=== PATIENT | female | born 1965 | race Caucasian/White ===

== ENCOUNTER 2018-06-10 15:59 | Inpatient (IN) | payer MEDICAID ==
[~2018-06-10] VITALS: Ht 165.1 cm; Wt 57.2 kg
--- NOTE | 2018-06-10 10:25 | NUR ---
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 Addendum: 06/11/18 at 0646 by SILVA RAWLS RN CORRECT TIME IS 1453
[~2018-06-10 15:59] MED LIST: GADODIAMIDE 2.5 MMOL/5 ML VIAL IJ ONE; GADODIAMIDE 5 MMOL/10 ML VIAL IJ ONE
--- NOTE | 2018-06-10 16:30 | NUR ---
PATIENT ARRIVED VIA STRETCHER. [id number], FROM HOME, LOW BP 74/56, 500cc NS INFUSED WNT UP TO 90/54. PATIENT AAO. DENIES ANY PAIN OR DISCOMFORT. NO ACUTE DISTRESS
[2018-06-10 16:46] LABS: BASOPHILS # (AUTO) 0.1 /CMM (0.0-0.2); BASOPHILS % (AUTO) 1.4 % (0.0-2.0); EOSINOPHILS % (AUTO) 2.6 % (0.0-6.0); HEMATOCRIT 41 % (33-45); HEMOGLOBIN 14.1 g/dL (11.5-14.8); LYMPHOCYTES # (AUTO) 1.8 /CMM (0.8-4.8); LYMPHOCYTES % (AUTO) 33.6 % (20.0-44.0); MEAN CORPUSCULAR HGB CONC 34 g/dl (31.0-36.0); MEAN CORPUSCULAR VOLUME 98 fL (82-100); MONOCYTES # (AUTO) 0.4 /CMM (0.1-1.30); MONOCYTES % (AUTO) 7.4 % (2.0-12.0); NEUTROPHILS # (AUTO) 2.9 /CMM (1.8-8.9); PLATELET COUNT (AUTO) 253 /CMM (150-450); WHITE BLOOD COUNT (AUTO) 5.4 K/uL (4.3-11.0)
--- NOTE | 2018-06-10 16:50 | NUR ---
TRIAGE LICENSED PRACTICAL NURSE AT BEDSIDE
[2018-06-10 16:55] LABS: CALCIUM, SERUM 8.3 mg/dL (8.5-10.1); CARBON DIOXIDE 23 mmol/L (21-32); CHLORIDE 103 mmol/L (98-107); CREATININE 0.6 mg/dL (0.6-1.3); GLUCOSE 118 mg/dL (74-106); POTASSIUM 3.5 mmol/L (3.5-5.1); SODIUM SERUM 135 mmol/L (136-145); UREA NITROGEN, BLOOD 12 mg/dL (7-18)
[2018-06-10] MEDS ORDERED: IV NS 0.9% 1,000 ML BAG IV ONE (17:00)
--- NOTE | 2018-06-10 19:25 | NUR ---
TEXTED DR. HINSON FOR MRI APPROVAL.
--- NOTE | 2018-06-10 19:27 | NUR ---
MRI APPROVED.BARK SCALER NOTIFIED
--- NOTE | 2018-06-10 20:43 | NUR ---
PAGED [facility].
[2018-06-10 21:17] VITALS: BP 122/76
--- NOTE | 2018-06-10 21:19 | NUR ---
pt transfered to 105 via [facility].
--- NOTE | 2018-06-10 21:42 | NUR ---
HOG RIBBER NOTES, 7O YEAR OLD FEMALE ADMITTED FROM ER DEPARTMENT TRANSFERRED VIA STRETCHER IN COMPANY OF 2 NURSES, IN STABLE CONDITION, UNDER DR GARCIA WITH DX OF SYNCOPE, H/O STROKE IN 2004, AND HYSTERECTOMY IN 2002, A/O X3 ABLE TO VERBALIZED NEEDS, ACCOMPANIED OF SIGNIFICANT OTHER, SR IN TELE MONITOR HR IN 70S AT THIS TIME, ABLE TO TRANSFER FROM STRETCHER TO BED WITH ASSISTANCE, NOTED WITH RIGHT SIDED WEAKNESS ACCORDING TO HER AND FROM RESIDUAL FROM STROKE IN 2004, AND RIGHT HAND CONTRACTED, NO DIFFICULTY SPEAKING NOTED, NO FACIAL DROOPING, AFEBRILE AT THIS TIME, SKIN WARM, DRY AND INTACT, CALL LIGHT W/I REACH, BED BATH PROVIDED AND DRY AND CLEAN AT THIS TIME, WILL CONTINUE TO MONITOR CLOSELY AND F/U WITH MD FOR FURTHER ORDERS, PATIENT AWAITING FOR MRI MARGARET PATEL, ORDERED FROM ER DEPARTMENT MD, WILL F/U, AWAITING FOR WEATHER FORCASTER. Addendum: 06/10/18 at 2204 by SILVA RAWLS RN PATIENT ARRIVAL FROM ER AT [id number]
[2018-06-10] MEDS ORDERED: IV NS 0.9% 1,000 ML IV PRN (21:46)
[2018-06-10] MEDS ORDERED: MAG HYDROX/AL HYDROX/SIMETH 30 ML UDC PO PRN (22:00)
[2018-06-10] MEDS ORDERED: ZOLPIDEM TARTRATE 5 MG TABLET PO PRN (22:00)
[2018-06-10] MEDS ORDERED: Z GUARD REMEDY 2 OZ OINT TP PRN (22:00)
[2018-06-10] MEDS ORDERED: MAGNESIUM HYDROXIDE 30 ML UDC PO PRN (22:00)
[2018-06-10] MEDS ORDERED: ACETAMINOPHEN 325 MG TABLET PO PRN (22:00)
[2018-06-10] MEDS ORDERED: HYDROCODONE/APAP 5/325MG 1 EACH TABLET PO PRN (22:00)
[2018-06-10] MEDS ORDERED: ONDANSETRON HCL/PF 4 MG/2 ML VIAL IVP PRN (22:00)
--- NOTE | 2018-06-10 23:05 | NUR ---
RN NOTES, PATIENT RETURN FROM MRI OF BRAIN PROCEDURE, BAREBACK RIDER ATTACHED PER PROTOCOL, PATIENT IN STABLE CONDITION IN COMPANY OF PRIMARY NURSE AND PATTERNMAKER METAL BENCH.
[2018-06-11] VITALS (7 sets, daily range): BP systolic 104–130; BP diastolic 58–74
[2018-06-11 04:31] LABS: BASOPHILS # (AUTO) 0.1 /CMM (0.0-0.2); BASOPHILS % (AUTO) 2.7 % (0.0-2.0); EOSINOPHILS % (AUTO) 3.2 % (0.0-6.0); HEMATOCRIT 39 % (33-45); HEMOGLOBIN 13.5 g/dL (11.5-14.8); LYMPHOCYTES # (AUTO) 1.7 /CMM (0.8-4.8); LYMPHOCYTES % (AUTO) 31.8 % (20.0-44.0); MEAN CORPUSCULAR HGB CONC 34 g/dl (31.0-36.0); MEAN CORPUSCULAR VOLUME 96 fL (82-100); MONOCYTES # (AUTO) 0.5 /CMM (0.1-1.30); MONOCYTES % (AUTO) 9.5 % (2.0-12.0); NEUTROPHILS # (AUTO) 2.9 /CMM (1.8-8.9); NEUTROPHILS % (AUTO) 52.8 % (43.0-81.0); PLATELET COUNT (AUTO) 238 /CMM (150-450); RED BLOOD CELL COUNT(AUTO) 4.13 MIL/uL (4.0-5.2); WHITE BLOOD COUNT (AUTO) 5.4 K/uL (4.3-11.0)
[2018-06-11 04:54] LABS: ALBUMIN 3.3 g/dL (3.4-5.0); BILIRUBIN,TOTAL 0.3 mg/dL (0.2-1.0); CALCIUM, SERUM 8.3 mg/dL (8.5-10.1); CREATININE 0.5 mg/dL (0.6-1.3); MAGNESIUM 1.9 mg/dL (1.8-2.4); PHOSPHORUS 3.5 mg/dL (2.5-4.9); POTASSIUM 3.8 mmol/L (3.5-5.1); TOTAL PROTEIN, SERUM 5.9 g/dL (6.4-8.2)
[2018-06-11 05:04] LABS: THYROID STIMULATING HORMONE 1.432 uIU/mL (0.358-3.74)
--- NOTE | 2018-06-11 06:44 | NUR ---
CORRECT TIME IS 2225 Addendum: 06/11/18 at 0645 by SILVA RAWLS RN WRONG ENTRY
--- NOTE | 2018-06-11 06:50 | NUR ---
RN NOTES, PATIENT SLEEPING AT THIS TIME, AT ROOM AIR WITH OPTIMAL O2 SAT LEVEL, NO SOB/ACUTE DISTRESS NOTED AT THIS TIME, IV ACCESS IN RIGHT HAND AND LEFT AC PATENT AND INTACT AND IVF INFUSING WELL AND PATIENT TOLERATED WELL, MRI DONE LAST NIGHT, NO SIGNIFICANT CHANGE IN CONDITION DURING THE NIGHT, CALL LIGHT W/I REACH, DRY AND CLEAN, ALL NEEDS PROVIDED, ALL SAFETY PRECAUTIONS IN PLACED WELL ASPIRATION PRECAUTIONS, WILL ENDORSE FOR CONTINUITY OF CARE TO ONCOMING NURSE.
--- NOTE | 2018-06-11 17:30 | NUR ---
RN NOTE PT DISCHARGED/TRANSFERRED TO [facility], IN STABLE CONDITION. REPORT GIVEN TO CHAY BYNUM, [phone], ROOM 4412-1. AT BEDSIDE AWARE. TRANSFER PAPERS SIGNED, DISCHARGE INSTRUCTIONS PROVIDED. IV LEFT IN PLACE, BELONGINGS SENT WITH , SKIN WAS INTACT. CD WITH IMAGES AND PAPERS INCLUDED WITHIN FOLDER.
== END 2018-06-11 19:18 | disposition short-term general hospital (02) | DRG 48 ==
LOC: ER 16:04 → TELE1 20:40 → MEDSG1 06-11 09:06
PROVIDERS: ADMIT Internal Medicine; ATTEND Internal Medicine
DX: G90.8 Other disorders of autonomic nervous system (principal); I95.9 Hypotension, unspecified; E87.1 Hypo-osmolality and hyponatremia; I69.351 Hemiplegia and hemiparesis following cerebral infarction affecting right dominant side; Q27.30 Arteriovenous malformation, site unspecified; F12.90 Cannabis use, unspecified, uncomplicated; Z72.0 Tobacco use
CPT/HCPCS: 36415; 70450-TC; 70553-TC; 71045-TC; 80048-TC; 80053-TC; 80061-TC; 83735-TC; 84100-TC; 84443-TC; 84484-TC; 84702-TC; 85025-TC; 87081-TC; 93307-TC; 93880-TC; 94799-TC; A9579; G0378; J7030